=== PATIENT | female | born 1975 | race Caucasian/White ===

== ENCOUNTER 2016-11-07 21:00 | Emergency (ER) | payer BC, OTHER ==
[~2016-11-07] VITALS: Ht 160 cm; Wt 134.9 kg
[~2016-11-07 21:00] MED LIST: BACT800T5 PO; LEXA5TAB PO; LISI-587 PO; MONT10 PO; SYNT75TA PO
[2016-11-07 21:08] VITALS: BP 180/127; PULSE 76; RESP 18; TEMP 98.6; O2SAT 100
[2016-11-07] MEDS ORDERED: FLUO-1 PO (21:35)
[2016-11-07] MEDS ORDERED: METF500T PO (21:35)
[2016-11-07] MEDS ORDERED: KETOROLAC TROMETHAMINE 60 MG/2 ML (IM) VIAL IM ONE (21:45)
[2016-11-07] MEDS ORDERED: METOCLOPRAMIDE HCL 10 MG TAB PO ONE (21:45)
[2016-11-07] MEDS ORDERED: AMOXICILLIN/CLAVULANATE K 875 MG TAB PO ONE (21:45)
[2016-11-07] MEDS ORDERED: AUGM875T PO (21:46)
--- NOTE | 2016-11-07 21:46 | PD ---
HPI Chief Complaint: ENT Complaint Time Seen by Provider: 21:35 Travel History International Travel<30 days: No Contact w/Intl Traveler<30days: No Traveled to known affect area: No History of Present Illness HPI 41-year-old female here for evaluation of sinus pressure and headache. Symptoms have been going on for last 3 days. Patient reports feeling head pressure which has been intermittent for the last 3 days, moderate, associated with some photophobia and nausea. No vomiting. No fevers or chills. She reports history of migraines. This is not the worst headache of her life. Gradual onset. PFSH Past Medical History Asthma: Yes Blood Disorders: No Anxiety: Yes Depression: Yes Cancer: No Cardiovascular Problems: Yes (HTN) COPD: No Diabetes: No Diminished Hearing: No Endocrine: No Gastrointestinal Disorders: Yes Genitourinary: Yes (UTI) Headaches: Yes Immune Disorder: No Implanted Vascular Access Dvce: Yes Musculoskeletal: No Neurologic: Yes Psychiatric: Yes Reproductive: No Respiratory: Yes (Asthma ) Immunizations Current: Yes Migraines: Yes Sleep Apnea: No Thyroid Disease: Yes Ulcer: Yes Tetanus Vaccination: < 5 Years Influenza Vaccination: No ?: Unknown LMP: 02 27 17 : 3 Para: 3 Tubal Ligation: Yes (2007) Past Surgical History Abdominal Surgery: Yes (GALLBLADDER) AICD: No Arteriovenous Shunt: No Cardiac Surgery: No Section: Yes (2007) Cholecystectomy: Yes Ear Surgery: No Endocrine Surgery: No Genitourinary Surgery: No Gynecologic Surgery: Yes (C SECTION TUBAL LIGATION) Insulin Pump: No Joint Replacement: No Neurologic Surgery: No Oral Surgery: No Pacemaker: No Thoracic Surgery: No Other Surgery: Yes Social History Alcohol Use: No Tobacco Use: No Substance Use: No Allergies-Medications (Allergen,Severity, Reaction): Coded Allergies: No Known Allergies (Unverified , 05/28/16) Reported Meds & Prescriptions Reported Meds & Active Scripts Active Reported Metformin (Metformin HCl) 500 Mg Tab 500 Mg PO BIDPC With meals Prozac (Fluoxetine HCl) 10 Mg Cap 10 Mg PO DAILY Review of Systems Except as stated in HPI: all other systems reviewed are Neg Physical Exam Narrative GENERAL: Well-developed, well-nourished, comfortable, overall well-appearing, no acute distress. SKIN: Warm and dry. No rash. HEAD: Atraumatic. Normocephalic. Frontal sinus and maxillary sinus tenderness. EYES: Pupils equal and round. No scleral icterus. No injection or drainage. ENT: No nasal bleeding or discharge. Mucous membranes pink and moist. Bilateral tympanic membranes and external auditory canals are normal. NECK: Trachea midline. No JVD. No nuchal rigidity. CARDIOVASCULAR: Regular rate and rhythm. No murmur appreciated. RESPIRATORY: No accessory muscle use. Clear to auscultation. Breath sounds equal bilaterally. GASTROINTESTINAL: Abdomen soft, non-tender, nondistended. MUSCULOSKELETAL: No obvious deformities. No clubbing. No cyanosis. No edema. NEUROLOGICAL: Awake and alert. No obvious cranial nerve deficits. Motor grossly within normal limits. Normal speech. PSYCHIATRIC: Appropriate mood and affect; insight and judgment normal. Data Data Last Documented VS Vital Signs Date Time Temp Pulse Resp B/P Pulse Ox O2 Delivery O2 Flow Rate FiO2 11/07/16 21:08 98.6 76 18 180/127 100 Orders Ketorolac Inj (Toradol Inj) (11/07/16 21:45) Metoclopramide (Reglan) (11/07/16 21:45) Amoxicil-Clavulanate (Augmentin) (11/07/16 21:45) [facility] Medical Decision Making Medical Screen Exam Complete: Yes Emergency Medical Condition: Yes Differential Diagnosis Sinusitis, tension headache, migraine headache, cluster headache, SAH/meningitis /encephalitis unlikely Narrative Course This is a 41-year-old female with signs and symptoms that are classic for sinusitis. The patient reports history of sinusitis and reports that her symptoms were similar in the past. She is overall very well-appearing. No nuchal rigidity. Plan is to give her a dose of Toradol and Reglan here for her headache/sinus pressure and nausea as well as start her on Augmentin. PMD follow-up this week. She was informed on when to return to the emergency department. She verbalizes understanding and agreement with plan. Diagnosis Primary Impression: Sinusitis Qualified Code: J01.10 - Acute frontal sinusitis, recurrence not specified Referrals: Primary Care Physician 3 days Additional Instructions: Follow-up with your primary care physician this week. Take medications as prescribed. Return to the emergency department for worsening symptoms or any other concerns. Scripts Amoxicillin-Clavulanate (Augmentin)875-125 mg [id number] Mg PO BID 10 Days Ref 0 not for use in CrCl <30 ml/min. Prov:Preet Knapp MD 11/07/16 Disposition: 01 DISCHARGE HOME Condition: Stable Preet Knapp MD Nov 07, 2016 21:46
== END 2016-11-07 21:58 | disposition home or self-care (01) ==
LOC: PHED 21:00
DX: J32.9 Chronic sinusitis, unspecified (principal)
CPT/HCPCS: 96372; 99283; J1885

== ENCOUNTER 2016-11-12 20:23 | Emergency (ER) | payer OTHER ==
[~2016-11-12] VITALS: Ht 160 cm; Wt 135.5 kg
[~2016-11-12 20:23] MED LIST changes: +AUGM875T PO; -BACT800T5 PO; +FLUO-1 PO; -LEXA5TAB PO; -LISI-587 PO; +METF500T PO; -MONT10 PO; -SYNT75TA PO
[2016-11-12 20:46] VITALS: BP 202/139; PULSE 82; RESP 18; TEMP 98.2; O2SAT 99
== END 2016-11-13 04:38 | disposition left against medical advice (07) ==
LOC: PHED 20:23
DX: R51 Headache (principal)
CPT/HCPCS: 99281

== ENCOUNTER 2016-12-24 18:57 | Emergency (ER) | payer OTHER ==
[2016-12-24] VITALS (7 sets, daily range): BP systolic 168–210; BP diastolic 95–143; PULSE 68–105; RESP 16–20; TEMP 98.1; O2SAT 96–100
[2016-12-24] MEDS ORDERED: MONT10TA2 PO ×2 (19:13→20:47)
[2016-12-24] MEDS ORDERED: SODIUM CHLOR 0.9% 1000 ML INJ 1,000 ML IV ONE (19:46)
--- NOTE | 2016-12-24 19:55 | PD ---
HPI Chief Complaint: Headache Time Seen by Provider: 19:38 Travel History International Travel<30 days: No Contact w/Intl Traveler<30days: No Traveled to known affect area: No History of Present Illness HPI The patient is a 41-year-old female that states she has allergic type migraine headaches. She had her typical gradual onset migraine headache today but she did not have any Singulair to take which usually helps the headache. The headache is her usual headache that starts on the right occipital area and radiates. She does have nausea with vomiting and photophobia/phonophobia. Typical of her headaches she states her pressure goes up very high. She states her primary care physician took her off blood pressure medications because her blood pressure was very good. She denies any focal neurologic change. PFSH Past Medical History Asthma: Yes Blood Disorders: No Anxiety: Yes Depression: Yes Cancer: No Cardiovascular Problems: Yes (HTN) COPD: No Diabetes: No Diminished Hearing: No Endocrine: No Gastrointestinal Disorders: Yes Genitourinary: Yes (UTI) Headaches: Yes Hypertension: Yes Immune Disorder: No Implanted Vascular Access Dvce: Yes Musculoskeletal: No Neurologic: Yes Psychiatric: Yes Reproductive: No Respiratory: Yes (Asthma ) Immunizations Current: Yes Migraines: Yes Sleep Apnea: No Thyroid Disease: Yes Ulcer: Yes Influenza Vaccination: No ?: Not LMP: 12/11/16 : 3 Para: 3 Tubal Ligation: Yes (2007) Past Surgical History Abdominal Surgery: Yes (GALLBLADDER) AICD: No Arteriovenous Shunt: No Cardiac Surgery: No Section: Yes (2007) Cholecystectomy: Yes Ear Surgery: No Endocrine Surgery: No Genitourinary Surgery: No Gynecologic Surgery: Yes (C SECTION TUBAL LIGATION) Insulin Pump: No Joint Replacement: No Neurologic Surgery: No Oral Surgery: No Pacemaker: No Thoracic Surgery: No Other Surgery: Yes Social History Alcohol Use: No Tobacco Use: No Substance Use: No Allergies-Medications (Allergen,Severity, Reaction): Coded Allergies: No Known Allergies (Unverified , 12/24/16) Reported Meds & Prescriptions Reported Meds & Active Scripts Active Singulair (Montelukast Sodium) 10 Mg Tab 10 Mg PO HS Reported Singulair (Montelukast Sodium) 10 Mg Tab 10 Mg PO HS Metformin (Metformin HCl) 500 Mg Tab 500 Mg PO BIDPC With meals Prozac (Fluoxetine HCl) 10 Mg Cap 10 Mg PO DAILY Review of Systems Except as stated in HPI: all other systems reviewed are Neg Physical Exam Narrative GENERAL: The patient is alert, obese, oriented 3 in moderate apparent distress with her headache. Her blood pressure is 207/143 with a heart rate of 105 but the rest the vital signs are normal. SKIN: Focused skin assessment warm/dry. HEAD: Atraumatic. Normocephalic. EYES: Pupils equal and round. No scleral icterus. No injection or drainage. ENT: No nasal bleeding or discharge. Mucous membranes pink and moist. NECK: Trachea midline. No JVD. There is no meningismus and the patient can flex neck so that the chin touches her chest. CARDIOVASCULAR: Regular rate and rhythm. No murmur appreciated. RESPIRATORY: No accessory muscle use. Clear to auscultation. Breath sounds equal bilaterally. GASTROINTESTINAL: Abdomen soft, non-tender, nondistended. Hepatic and splenic margins not palpable. MUSCULOSKELETAL: No obvious deformities. No clubbing. No cyanosis. No edema. NEUROLOGICAL: Awake and alert. No obvious cranial nerve deficits. Motor grossly within normal limits. Normal speech. PSYCHIATRIC: Appropriate mood and affect; insight and judgment normal. Data Data Last Documented VS Vital Signs Date Time Temp Pulse Resp B/P Pulse Ox O2 Delivery O2 Flow Rate FiO2 12/24/16 22:12 80 16 168/109 99 Room Air 12/24/16 19:04 98.1 Orders Complete Blood Count With Diff (12/24/16 19:46) Basic Metabolic Panel (Bmp) (12/24/16 19:46) Ecg Monitoring (12/24/16 19:46) Iv Access Insert/Monitor (12/24/16 19:46) Oximetry (12/24/16 19:46) Sodium Chloride 0.9% Flush (Ns Flush) (12/24/16 20:00) Ketorolac Inj (Toradol Inj) (12/24/16 20:00) Prochlorperazine Inj (Compazine Inj) (12/24/16 20:00) Diphenhydramine Inj (Benadryl Inj) (12/24/16 20:00) Sodium Chlor 0.9% 1000 Ml Inj (Ns 1000 M (12/24/16 19:46) Hydralazine Inj (Apresoline Inj) (12/24/16 20:00) Hydromorphone Pf Inj (Dilaudid Pf Inj) (12/24/16 20:30) Clonidine (Catapres) (12/24/16 21:00) Hydralazine Inj (Apresoline Inj) (12/24/16 21:45) Labs Laboratory Tests Test 12/24/16 19:48 White Blood Count 11.4 TH/MM3 Red Blood Count 5.39 MIL/MM3 Hemoglobin 13.5 GM/DL Hematocrit 41.1 % Mean Corpuscular Volume 76.2 FL Mean Corpuscular Hemoglobin 25.0 PG Mean Corpuscular Hemoglobin 32.8 % Concent Red Cell Distribution Width 13.4 % Platelet Count 270 TH/MM3 Mean Platelet Volume 8.9 FL Neutrophils (%) (Auto) 68.6 % Lymphocytes (%) (Auto) 21.0 % Monocytes (%) (Auto) 5.9 % Eosinophils (%) (Auto) 2.0 % Basophils (%) (Auto) 2.5 % Neutrophils # (Auto) 7.8 TH/MM3 Lymphocytes # (Auto) 2.4 TH/MM3 Monocytes # (Auto) 0.7 TH/MM3 Eosinophils # (Auto) 0.2 TH/MM3 Basophils # (Auto) 0.3 TH/MM3 CBC Comment DIFF FINAL Differential Comment Sodium Level 139 MEQ/L Potassium Level 4.2 MEQ/L Chloride Level 106 MEQ/L Carbon Dioxide Level 27.1 MEQ/L Anion Gap 6 MEQ/L Blood Urea Nitrogen 11 MG/DL Creatinine 0.85 MG/DL Estimat Glomerular Filtration 74 ML/MIN Rate Random Glucose 104 MG/DL Calcium Level 8.4 MG/DL MDM Medical Decision Making Medical Screen Exam Complete: Yes Emergency Medical Condition: Yes Medical Record Reviewed: Yes Interpretation(s) The basic metabolic profile shows a GFR of 74 and calcium of 8.4 but is otherwise unremarkable. The CBC shows a white count of 11,400 but is otherwise unremarkable. Differential Diagnosis Migraine headache, tension headache, tension/migraine combination headache, normal pressure hydrocephalushighly unlikely, subarachnoid hemorrhagehighly unlikely, cluster headache, hypertensive headache Narrative Course It is now a 805 PM and the patient's pain has gone from a 10/10 to an 8/10. Her nausea has resolved. The blood pressure has gone down to 177/95. It is now 8:43 PM and the patient's pain is now a 4/10. She has no nausea. It is now 9:40 PM and the patient's headache has completely resolved. Her pressure is still elevated and we will give hydralazine 10 mg IV. The patient's headache is unlikely to be from the hypertension. The headache has completely resolved and yet her blood pressure still remains elevated. This appears to be a migraine headache. Plan: The patient will follow-up with her primary care physician, hopefully this week, for her blood pressure.@1013, blood pressure is 158/109. Diagnosis Primary Impression: Migraine headache Additional Impression: Hypertension, poor control Additional Instructions: Follow-up with her primary care physician this week if possible for your blood pressure. I refilled the Singulair to be taken 10 mg before bed. Med/Other Pt SpecificInfo: Prescription(s) given Scripts Montelukast (Singulair)10 Mg Tab10 Mg PO HS #30 TAB Ref 0 Prov:Arvind Helton MD 12/24/16 Disposition: 01 DISCHARGE HOME Condition: Stable Arvind Helton MD December 24, 2016 19:55
[2016-12-24] MEDS ORDERED: PROCHLORPERAZINE INJ 10 MG/2 ML VIAL IVP ONE (20:00)
[2016-12-24] MEDS ORDERED: KETOROLAC TROMETHAMINE 30 MG/ML (IVP) VIAL IVP ONE (20:00)
[2016-12-24] MEDS ORDERED: SODIUM CHLORIDE 0.9% FLUSH 10 ML FLUSH IVF PRN (20:00)
[2016-12-24] MEDS ORDERED: hydrALAZINE HCL 20 MG/ML VIAL IV PUSH ONE ×2 (20:00→21:45)
[2016-12-24] MEDS ORDERED: diphenhydrAMINE HCL 50 MG/ML VIAL IVP ONE (20:00)
[2016-12-24 20:02] LABS: AUTOMATED NEUTROPHIL # 7.8 TH/MM3 (1.8-7.7); BASOPHIL # 0.3 TH/MM3 (0-0.2); BASOPHIL % 2.5 % (0.0-2.0); EOSINOPHIL # 0.2 TH/MM3 (0-0.4); HEMATOCRIT 41.1 % (35.0-46.0); HEMO FLAGS DIFF FINAL; LYMPHOCYTE # 2.4 TH/MM3 (1.0-4.8); MEAN CELL VOLUME 76.2 FL (80.0-100.0); MEAN CORPUSCULAR HGB CONC 32.8 % (32.0-36.0); MONO % 5.9 % (0.0-8.0); NEUT % 68.6 % (16.0-70.0); PLATELET COUNT 270 TH/MM3 (150-450); RED BLOOD COUNT 5.39 MIL/MM3 (4.00-5.30); RED CELL DISTRIBUTION WIDTH 13.4 % (11.6-17.2); WHITE BLOOD COUNT 11.4 TH/MM3 (4.0-11.0)
[2016-12-24 20:11] LABS: BICARBONATE 27.1 MEQ/L (21.0-32.0); POTASSIUM 4.2 MEQ/L (3.5-5.1)
[2016-12-24] MEDS ORDERED: HYDROmorphone HCL PF 1 MG/ML VIAL IVP ONE (20:30)
[2016-12-24] MEDS ORDERED: cloNIDine HCL 0.2 MG TAB PO ONE (21:00)
== END 2016-12-24 22:29 | disposition home or self-care (01) ==
LOC: PHED 18:57
DX: G43.909 Migraine, unspecified, not intractable, without status migrainosus (principal); I10 Essential (primary) hypertension; J45.909 Unspecified asthma, uncomplicated
CPT/HCPCS: 80048; 85025; 96361; 96374; 96375; 96376; 99283; J0360; J0780; J1170; J1200; J1885; J7030

== ENCOUNTER 2017-02-11 11:03 | Emergency (ER) | payer OTHER ==
[~2017-02-11] VITALS: Ht 160 cm; Wt 136.0 kg
[~2017-02-11 11:03] MED LIST changes: -AUGM875T PO; +MONT10TA2 PO
[2017-02-11 11:13] VITALS: BP 201/133; PULSE 92; RESP 16; TEMP 98; O2SAT 98
[2017-02-11] MEDS ORDERED: SODIUM CHLOR 0.9% 1000 ML INJ 1,000 ML IV ONE (11:26)
[2017-02-11] MEDS ORDERED: FLUT1SPR5 EACH NARE (11:27)
[2017-02-11] MEDS ORDERED: SODIUM CHLORIDE 0.9% FLUSH 10 ML FLUSH IVF PRN (11:30)
[2017-02-11] MEDS ORDERED: LABETALOL HCL 100 MG/20 ML VIAL IV PUSH ONE (11:30)
[2017-02-11] MEDS ORDERED: MORPHINE SULFATE 4 MG/ML INJ IV PUSH ONE (11:30)
[2017-02-11] MEDS ORDERED: diphenhydrAMINE HCL 50 MG/ML VIAL IVP ONE (11:30)
[2017-02-11] MEDS ORDERED: KETOROLAC TROMETHAMINE 30 MG/ML (IVP) VIAL IVP ONE (11:30)
[2017-02-11] MEDS ORDERED: PROCHLORPERAZINE INJ 10 MG/2 ML VIAL IVP ONE (11:30)
--- NOTE | 2017-02-11 11:39 | PD ---
HPI Chief Complaint: Headache Time Seen by Provider: 11:17 Travel History International Travel<30 days: No Contact w/Intl Traveler<30days: No Traveled to known affect area: No History of Present Illness HPI The patient is a 41-year-old female who presents emergency department for headache. The patient states she developed a headache approximately 4:30 AM as located behind the right nasal area and radiates up into the head. The patient does complain of or a with flashing lights from both eyes as well as photophobia associated with her headache. She does complain of mild nausea but denies any vomiting. The patient has a history of migraines in the past with similar features, denies any acute onset of her headache or thunderclap quality. She denies any posterior neck pain or weakness of the upper or lower extremities. She denies any acute focal neurologic deficits. The patient states when she has a migraine her blood pressure is elevated, however, states the headache precedes the elevated blood pressure. The patient has been followed by her primary physician in the past for migraines, but is not currently on any suppressive medications. PFSH Past Medical History Asthma: Yes Blood Disorders: No Anxiety: Yes Depression: Yes Cancer: No Cardiovascular Problems: Yes (HTN) COPD: No Diabetes: No Diminished Hearing: No Endocrine: No Gastrointestinal Disorders: Yes Genitourinary: Yes (UTI) Headaches: Yes Hypertension: Yes Immune Disorder: No Implanted Vascular Access Dvce: Yes Musculoskeletal: No Neurologic: Yes Psychiatric: Yes Reproductive: No Respiratory: Yes (Asthma ) Immunizations Current: Yes Migraines: Yes Sleep Apnea: No Thyroid Disease: Yes Ulcer: Yes ?: Not LMP: 01/22/17 : 3 Para: 3 Tubal Ligation: Yes (2007) Past Surgical History Abdominal Surgery: Yes (GALLBLADDER) AICD: No Arteriovenous Shunt: No Cardiac Surgery: No Section: Yes (2007) Cholecystectomy: Yes Ear Surgery: No Endocrine Surgery: No Genitourinary Surgery: No Gynecologic Surgery: Yes (C SECTION TUBAL LIGATION) Insulin Pump: No Joint Replacement: No Neurologic Surgery: No Oral Surgery: No Pacemaker: No Thoracic Surgery: No Other Surgery: Yes Social History Alcohol Use: No Tobacco Use: No Substance Use: No Allergies-Medications (Allergen,Severity, Reaction): Coded Allergies: No Known Allergies (Unverified , 02/11/17) Reported Meds & Prescriptions Reported Meds & Active Scripts Active Reported Flonase Nasal Foll[place]bee (Fluticasone Nasal Foll[place]bee) 50 Mcg/Act [place]oll[place] 50 Mcg EACH NARE BID Singulair (Montelukast Sodium) 10 Mg Tab 10 Mg PO HS Review of Systems Except as stated in HPI: all other systems reviewed are Neg General / Constitutional: No: Fever Eyes: Positive: Photophobia HENT: Positive: Headaches, No: Neck Pain Cardiovascular: No: Chest Pain or Discomfort Respiratory: No: Shortness of Breath Gastrointestinal: Positive: Nausea, No: Vomiting Musculoskeletal: No: Weakness Neurologic: Positive: Headache, No: Dizziness, Paresthesia, Sensory Disturbance Physical Exam Narrative GENERAL: Awake, alert, pleasant 41-year-old female who appears her stated age and is in no acute respiratory distress. Patient is initially evaluated with her sunglasses on. SKIN: Focused skin assessment warm/dry. HEAD: Atraumatic. Normocephalic. EYES: Pupils equal and round. Pupils are 3 mm bilateral and reactive. EOMs are intact. ENT: No nasal bleeding or discharge. Mucous membranes pink and moist. NECK: Trachea midline. No JVD. No meningeal signs noted. CARDIOVASCULAR: Regular rate and rhythm. No murmur appreciated. RESPIRATORY: No accessory muscle use. Clear to auscultation. Breath sounds equal bilaterally. GASTROINTESTINAL: Abdomen soft, non-tender, nondistended. MUSCULOSKELETAL: No obvious deformities. No clubbing. No cyanosis. No edema. NEUROLOGICAL: Awake and alert. No obvious cranial nerve deficits. Motor grossly within normal limits. Normal speech. Nonfocal. Oriented 4. Follows commands without difficulty. PSYCHIATRIC: Appropriate mood and affect; insight and judgment normal. Data Data Last Documented VS Vital Signs Date Time Temp Pulse Resp B/P Pulse Ox O2 Delivery O2 Flow Rate FiO2 02/11/17 12:35 74 20 190/118 97 02/11/17 11:13 98.0 Orders Ecg Monitoring (02/11/17 11:26) Iv Access Insert/Monitor (02/11/17 11:26) Oximetry (02/11/17 11:26) Sodium Chloride 0.9% Flush (Ns Flush) (02/11/17 11:30) Ketorolac Inj (Toradol Inj) (02/11/17 11:30) Prochlorperazine Inj (Compazine Inj) (02/11/17 11:30) Diphenhydramine Inj (Benadryl Inj) (02/11/17 11:30) Sodium Chlor 0.9% 1000 Ml Inj (Ns 1000 M (02/11/17 11:26) Morphine Inj (Morphine Inj) (02/11/17 11:30) Labetalol Inj (Trandate Inj) (02/11/17 11:30) MDM Medical Decision Making Medical Screen Exam Complete: Yes Emergency Medical Condition: Yes Medical Record Reviewed: Yes Interpretation(s) Vital Signs Date Time Temp Pulse Resp B/P Pulse Ox O2 Delivery O2 Flow Rate FiO2 02/11/17 12:35 74 20 190/118 97 02/11/17 11:59 16 02/11/17 11:46 96 02/11/17 11:45 85 20 219/122 99 02/11/17 11:13 98.0 92 16 201/133 98 Differential Diagnosis Differential diagnosis includes migraine, tension headache, cluster headache, hypertensive urgency, hypertensive emergency, sinusitis, glaucoma, cavernous sinus thrombosis. Narrative Course IV was established, the patient was placed on cardiac telemetry monitoring and continuous pulse oximetry monitoring. The patient was administered Benadryl, Compazine, Toradol, morphine, and IV fluids. Patient was also administered labetalol 20 mg intravenously for significantly elevated blood pressure. The patient is nonfocal on exam, no indication for acute imaging. The patient was reevaluated at 12:35 PM, her headache had resolved. The patient's blood pressure did improve, systolic was still slightly high 190 and diastolic was still slightly over 100, however, they did improve. The patient states she has not taken her lisinopril or hydrochlorothiazide at some time, is not had recent blood work. Therefore, I will place the patient on Norvasc 10 mg a day, she is advised to follow-up with her primary physician for repeat blood pressure monitoring. Return if symptoms worsen or progress. Diagnosis Primary Impression: Migraine headache Qualified Code: G43.909 - Migraine without status migrainosus, not intractable , unspecified migraine type Additional Impression: Hypertension, poor control Patient Instructions: General Instructions, Narcotic given in the ED Additional Instructions: Follow-up with your primary physician. Blood pressure medications as directed. Return if symptoms worsen or progress. Med/Other Pt SpecificInfo: Prescription(s) given Scripts Amlodipine (Norvasc)10 Mg Tab10 Mg PO DAILY #30 TAB Ref 0 Prov:Jasper Falk MD 02/11/17 Disposition: 01 DISCHARGE HOME Condition: Stable Jasper Falk MD Feb 11, 2017 11:39
[2017-02-11 11:45] VITALS: BP 219/122; PULSE 85; RESP 20; O2SAT 99
[2017-02-11 11:46] VITALS: O2SAT 96
[2017-02-11 12:35] VITALS: BP 190/118; PULSE 74; RESP 20; O2SAT 97
[2017-02-11] MEDS ORDERED: AMLO10 PO (12:43)
== END 2017-02-11 12:56 | disposition home or self-care (01) ==
LOC: PHED 11:03
DX: G43.909 Migraine, unspecified, not intractable, without status migrainosus (principal); I10 Essential (primary) hypertension
CPT/HCPCS: 96361; 96374; 96375; 99284; J0780; J1200; J1885; J2270; J7030

== ENCOUNTER 2017-05-16 18:56 | Emergency (ER) | payer OTHER ==
[2017-05-16] VITALS (12 sets, daily range): BP systolic 132–229; BP diastolic 72–134; PULSE 66–96; RESP 18–20; TEMP 98–98.7; O2SAT 97–98
[~2017-05-16] VITALS: Ht 160 cm; Wt 135.9 kg
[~2017-05-16 18:56] MED LIST changes: +AMLO10 PO; -FLUO-1 PO; +FLUT1SPR5 EACH NARE; -METF500T PO
[2017-05-16] MEDS ORDERED: PROCHLORPERAZINE INJ 10 MG/2 ML VIAL IVP ONE (19:30)
[2017-05-16] MEDS ORDERED: LABETALOL HCL 100 MG/20 ML VIAL IV PUSH ONE (19:30)
[2017-05-16] MEDS ORDERED: KETOROLAC TROMETHAMINE 30 MG/ML (IVP) VIAL IVP ONE (19:30)
[2017-05-16] MEDS ORDERED: diphenhydrAMINE HCL 50 MG/ML VIAL IVP ONE (19:30)
[2017-05-16] MEDS ORDERED: SODIUM CHLOR 0.9% 1000 ML INJ 1,000 ML IV SCH (19:30)
--- NOTE | 2017-05-16 19:43 | PD ---
HPI Chief Complaint: Headache Time Seen by Provider: 19:30 Travel History International Travel<30 days: No Contact w/Intl Traveler<30days: No Traveled to known affect area: No History of Present Illness HPI 41-year-old female presents to the emergency department by private transportation for complaint of recurrent migraine headache. Patient states typical headache since yesterday with associated photophobia and nausea. Patient states also has history of high blood pressure that is currently not been treated 6 months. Patient reports that she was discontinued off lisinopril and HCTZ approximately 6 months ago by her primary care provider and was not placed on an alternative antihypertensive. Patient states she's been under a lot of stress and has had sinus irritation with history of allergic rhinosinusitis. No fever, no chills, no double vision, loss of vision, no sudden onset thunderclap or worst headache of her life, no neck pain or stiffness, no upper or lower extremity numbness, tingling, or weakness,no chest pain, no palpitations, no referred neck, jaw, back, shoulder, arm, or abdominal pain also no vomiting and no near-syncope or syncope. Patient rates headache pain as 8-9/10 in intensity. PFSH Past Medical History Narrative Medical Anxiety depression asthma hypertension migraine UTI cholecystectomy tubal ligation no tobacco use alcohol use: Nursing notes reviewed Asthma: Yes Blood Disorders: No Anxiety: Yes Depression: Yes Cancer: No Cardiovascular Problems: Yes (HTN) COPD: No Diabetes: No Diminished Hearing: No Endocrine: No Gastrointestinal Disorders: Yes Genitourinary: Yes (UTI) Headaches: Yes Hypertension: Yes Immune Disorder: No Implanted Vascular Access Dvce: Yes Musculoskeletal: No Neurologic: Yes Psychiatric: Yes Reproductive: No Respiratory: Yes (Asthma ) Immunizations Current: Yes Migraines: Yes Sleep Apnea: No Thyroid Disease: Yes Ulcer: Yes Tetanus Vaccination: Unknown Influenza Vaccination: No ?: Not LMP: 05/02/17 : 3 Para: 3 Tubal Ligation: Yes (2007) Past Surgical History Abdominal Surgery: Yes (GALLBLADDER) AICD: No Arteriovenous Shunt: No Cardiac Surgery: No Section: Yes (2007) Cholecystectomy: Yes Ear Surgery: No Endocrine Surgery: No Genitourinary Surgery: No Gynecologic Surgery: Yes (C SECTION TUBAL LIGATION) Insulin Pump: No Joint Replacement: No Neurologic Surgery: No Oral Surgery: No Pacemaker: No Thoracic Surgery: No Other Surgery: Yes Social History Alcohol Use: No Tobacco Use: No Substance Use: No Allergies-Medications (Allergen,Severity, Reaction): Coded Allergies: No Known Allergies (Unverified , 05/16/17) Reported Meds & Prescriptions Reported Meds & Active Scripts Active Zofran Odt (Ondansetron Odt) 4 Mg Tab 4 Mg SL Q6HR PRN Norvasc (Amlodipine Besylate) 10 Mg Tab 10 Mg PO DAILY Review of Systems Except as stated in HPI: all other systems reviewed are Neg General / Constitutional: No: Fever, Chills Eyes: Positive: Photophobia, No: Diploplia, Blurred Vision HENT: Positive: Headaches, No: Vertigo, Lightheadedness, Neck Stiffness, Neck Pain Cardiovascular: No: Chest Pain or Discomfort, Palpitations, Diaphoresis, Syncope Respiratory: No: Shortness of Breath Gastrointestinal: Positive: Nausea, No: Vomiting, Abdominal Pain Genitourinary: No: Dysuria, Flank Pain Musculoskeletal: No: Myalgias, Arthralgias Skin: No Rash Neurologic: Positive: Headache, No: Weakness, Dizziness, Syncope, Focal Abnormalities, Coordination Problem, Change in Mentation, Slurred Speech, Paresthesia Psychiatric: No: Anxiety Hematologic/Lymphatic: No: Easy Bruising Physical Exam Narrative GENERAL: Well-developed well-nourished clinically obese female in no acute distress no respiratory distress; hypertensive BP: 210/134, 201/127 SKIN: Warm and dry. HEAD: Atraumatic. Normocephalic. EYES: Pupils equal and round. No scleral icterus. No injection or drainage. Extraocular muscles intact. Funduscopic exam no papilledema noted ENT: No nasal bleeding or discharge. Mucous membranes pink and moist. NECK: Trachea midline. No JVD. Supple no meningismus no nuchal rigidity. CARDIOVASCULAR: Regular rate and rhythm. RESPIRATORY: No accessory muscle use. Clear to auscultation. Breath sounds equal bilaterally. GASTROINTESTINAL: Abdomen soft, non-tender, nondistended. Hepatic and splenic margins not palpable. MUSCULOSKELETAL: Extremities without clubbing, cyanosis, or edema. No obvious deformities. NEUROLOGICAL: Awake and alert. No obvious cranial nerve deficits. Motor grossly within normal limits. Five out of 5 muscle strength in the arms and legs. Sensory exam intact. DTR's symmetric. No pronator drift. No limb ataxia. Normal speech. PSYCHIATRIC: Appropriate mood and affect; insight and judgment normal. Data Data Last Documented VS Vital Signs Date Time Temp Pulse Resp B/P (MAP) Pulse Ox O2 Delivery O2 Flow Rate FiO2 05/16/17 23:11 84 20 188/89 (122) 99 05/16/17 20:19 Room Air 05/16/17 19:22 98.0 Orders Orders Ecg Monitoring (05/16/17 19:30) Iv Access Insert/Monitor (05/16/17 19:30) Oximetry (05/16/17 19:30) Sodium Chloride 0.9% Flush (Ns Flush) (05/16/17 19:30) Ketorolac Inj (Toradol Inj) (05/16/17 19:30) Prochlorperazine Inj (Compazine Inj) (05/16/17 19:30) Diphenhydramine Inj (Benadryl Inj) (05/16/17 19:30) Labetalol Inj (Trandate Inj) (05/16/17 19:30) Sodium Chlor 0.9% 1000 Ml Inj (Ns 1000 M (05/16/17 19:30) Hydralazine Inj (Apresoline Inj) (05/16/17 21:15) Hydromorphone Pf Inj (Dilaudid Pf Inj) (05/16/17 21:15) Enalaprilat Inj (Vasotec Inj) (05/16/17 22:45) MDM Medical Decision Making Medical Screen Exam Complete: Yes Emergency Medical Condition: Yes Medical Record Reviewed: Yes Interpretation(s) Vital Signs Date Time Temp Pulse Resp B/P (MAP) Pulse Ox O2 Delivery O2 Flow Rate FiO2 05/16/17 21:51 96 20 136/72 (93) 98 05/16/17 21:36 93 20 132/81 (98) 98 05/16/17 21:31 20 05/16/17 21:19 75 20 206/106 (139) 98 05/16/17 20:48 67 20 193/101 (131) 98 05/16/17 20:19 70 20 210/118 (148) 98 Room Air 05/16/17 20:00 66 20 229/123 (158) 98 05/16/17 19:41 86 18 196/121 (146) 97 Room Air 05/16/17 19:40 97 05/16/17 19:22 98.0 94 18 201/127 (151) 97 05/16/17 19:11 98.7 94 210/134 (159) 97 Room Air Differential Diagnosis Cephalgia, migraine, hypertension, hypertensive urgency, ICH Narrative Course 41-year-old female with hypertension and history of migraine currently on no antihypertensive medications presents with recurrent headache consistent with her migraine worrisome for uncontrolled blood pressure induced cephalgia as well at this time has no focality on exam; patient placed on teletypesetter monitor with pulse oximetry IV access obtained; patient administered labetalol 20 mg IV for blood pressure management and Toradol 30 mg IV Compazine 10 mg IV Benadryl 25 mg IV for blood pressure management as well as maintenance fluids normal saline at 125 cc per hour. Patient with improvement of headache and mild photophobia and nausea however ongoing hypertension additional antihypertensive administered Patient given hydralazine 10 mg IV times one dose and dilaudid 1 mg iv At 10:37 PM blood pressure is 155/92; patient reports that she feels well; patient denies any headache. Patient also denies any shortness of breath or chest pain palpitations nausea sweats referred neck jaw back shoulder arm pain. Patient was able to ambulate about the emergency department without recurrent headache nausea no shortness of breath and otherwise asymptomatic. Patient will be given prescription for new antihypertensive and encouraged to follow-up with primary care provider. Diagnosis Primary Impression: Migraine headache Additional Impression: Hypertension, poor control Referrals: [facility] call for appointment Primary Care Physician 2 days Patient Instructions: General Instructions, Narcotic given in the ED Additional Instructions: Take blood pressure medication as prescribed May use medications Zofran as prescribed as needed for nausea and vomiting Take acetaminophen/Tylenol and/or ibuprofen/Advil/Motrin per package instructions as needed for minor pain/headache Return to the emergency department for any concerns or change condition Follow-up with primary care provider through [facility] for ongoing blood pressure management Med/Other Pt SpecificInfo: Prescription(s) given Scripts Ondansetron Odt (Zofran Odt) 4 Mg Tab 4 MG SL Q6HR Y for Nausea/Vomiting, #7 TAB 0 Refills Prov: Myla Rocha MD 05/16/17 Amlodipine (Norvasc) 10 Mg Tab 10 MG PO DAILY for Blood Pressure Management, #30 TAB 0 Refills Prov: Myla Rocha MD 05/16/17 Disposition: 01 DISCHARGE HOME Condition: Stable Myla Rocha MD May 16, 2017 19:43
[2017-05-16] MEDS: SODIUM CHLORIDE 0.9% FLUSH 10 ML FLUSH IVF PRN ×2 (20:01→21:24)
[2017-05-16] MEDS ORDERED: hydrALAZINE HCL 20 MG/ML VIAL IV PUSH ONE (21:15)
[2017-05-16] MEDS ORDERED: HYDROmorphone HCL PF 1 MG/ML VIAL IV PUSH ONE (21:15)
[2017-05-16] MEDS ORDERED: ZOFR4TAB3 SL (22:38)
[2017-05-16] MEDS ORDERED: AMLO10 PO (22:38)
[2017-05-16] MEDS ORDERED: ENALAPRILAT 1.25 MG/ML VIAL IV PUSH ONE (22:45)
== END 2017-05-16 23:19 | disposition home or self-care (01) ==
LOC: PHED 18:56
DX: G43.909 Migraine, unspecified, not intractable, without status migrainosus (principal); I10 Essential (primary) hypertension
CPT/HCPCS: 96361; 96374; 96375; 99284; J0360; J0780; J1170; J1200; J1885; J7030

== ENCOUNTER 2017-11-05 09:32 | Emergency (ER) | payer OTHER ==
[~2017-11-05] VITALS: Ht 160 cm; Wt 138.8 kg
[~2017-11-05 09:32] MED LIST changes: -FLUT1SPR5 EACH NARE; -MONT10TA2 PO; +ZOFR4TAB3 SL
[2017-11-05 09:37] VITALS: BP 267/147; PULSE 96; RESP 16; TEMP 97.7; O2SAT 100
[2017-11-05 10:43] VITALS: BP 222/110; PULSE 98; RESP 20; O2SAT 98
--- NOTE | 2017-11-05 11:09 | PD ---
HPI Chief Complaint: Dizziness Time Seen by Provider: 11:00 Travel History International Travel<30 days: No Contact w/Intl Traveler<30days: No Traveled to known affect area: No History of Present Illness HPI The patient was seen and examined in the presence of the nurse. This patient complains of headache. She has moderately severe headache on the right side of her head. No thunderclap onset. She does have history of migraines and this has is similar feel to it. She arrives hypertensive with a blood pressure 222 systolic at this time. No head injury or blood thinners. No alleviating factors. Denies other neurologic complaint. No exacerbating factor. Duration one day PFSH Past Medical History Asthma: Yes Blood Disorders: No Anxiety: Yes Depression: Yes Cancer: No Cardiovascular Problems: Yes (htn not taking meds) COPD: No Diabetes: No Diminished Hearing: No Endocrine: No Gastrointestinal Disorders: Yes Genitourinary: Yes (UTI) Headaches: Yes Hypertension: Yes Immune Disorder: No Implanted Vascular Access Dvce: Yes Musculoskeletal: No Neurologic: Yes Psychiatric: Yes Reproductive: No Respiratory: Yes (asthma) Immunizations Current: Yes Migraines: Yes Sleep Apnea: No Thyroid Disease: Yes Ulcer: Yes ?: Not LMP: 10/21/17 : 3 Para: 3 Tubal Ligation: Yes (2007) Past Surgical History Abdominal Surgery: Yes (GALLBLADDER) AICD: No Arteriovenous Shunt: No Cardiac Surgery: No Section: Yes (2007) Cholecystectomy: Yes Ear Surgery: No Endocrine Surgery: No Genitourinary Surgery: No Gynecologic Surgery: Yes (C SECTION TUBAL LIGATION) Insulin Pump: No Joint Replacement: No Neurologic Surgery: No Oral Surgery: No Pacemaker: No Thoracic Surgery: No Other Surgery: Yes Social History Alcohol Use: No Tobacco Use: No Substance Use: No Allergies-Medications (Allergen,Severity, Reaction): Coded Allergies: No Known Allergies (Unverified Adverse Reaction, Unknown, 11/05/17) Reported Meds & Prescriptions Reported Meds & Active Scripts Active No Active Prescriptions or Reported Medications Review of Systems General / Constitutional: No: Fever Eyes: No: Visual changes HENT: Positive: Headaches Cardiovascular: No: Chest Pain or Discomfort Respiratory: No: Shortness of Breath Gastrointestinal: Positive: Nausea, No: Abdominal Pain Genitourinary: No: Dysuria Musculoskeletal: No: Pain Skin: No Rash Neurologic: Positive: Headache, No: Weakness Psychiatric: No: Depression Endocrine: No: Polydipsia Hematologic/Lymphatic: No: Easy Bruising Physical Exam Narrative GENERAL: Well-nourished, well-developed patient with headache . SKIN: Focused skin assessment reveals no rash and nodules. Skin is Warm and dry. HEAD: Atraumatic. Normocephalic. EYES: Pupils equal and round. No scleral icterus. No injection or drainage. ENT: No nasal bleeding or discharge. Mucous membranes pink and moist. NECK: Trachea midline. No JVD. No meningeal signs CARDIOVASCULAR: Regular rate and rhythm. No murmur appreciated. RESPIRATORY: No accessory muscle use. Clear to auscultation. Breath sounds equal bilaterally. GASTROINTESTINAL: Abdomen soft, non-tender, nondistended. Hepatic and splenic margins not palpable. MUSCULOSKELETAL: No obvious deformities. No clubbing. No cyanosis. No edema. NEUROLOGICAL: Awake and alert. No obvious cranial nerve deficits. Motor grossly within normal limits. Normal speech. PSYCHIATRIC: Appropriate mood and affect; insight and judgment normal. Data Data Last Documented VS Vital Signs Date Time Temp Pulse Resp B/P (MAP) Pulse Ox O2 Delivery O2 Flow Rate FiO2 11/05/17 13:45 97 20 173/95 (121) 95 11/05/17 09:37 97.7 Orders Orders Ondansetron Inj (Zofran Inj) (11/05/17 11:15) Morphine Inj (Morphine Inj) (11/05/17 11:15) Ct Brain W/O Iv Contrast(Rout) (11/05/17 ) Clonidine (Catapres) (11/05/17 11:15) Nifedipine (Procardia) (11/05/17 13:00) MDM Medical Decision Making Medical Screen Exam Complete: Yes Emergency Medical Condition: Yes Medical Record Reviewed: Yes Differential Diagnosis Differential diagnosis includes migraine, tension headache, cluster headache, meningitis. Narrative Course I have reviewed the patient's electronic medical record. Patient's been here multiple times for migraines. However she never been this hypertensive I gave her dose of clonidine and will reassess blood pressure Gave her injection of morphine and Zofran for symptom relief Brain CT is normal She is neurologically intact I gave a dose of Procardia is the blood pressure did not really budge much On recheck it's now 175/95 Advised to check and recorded daily and follow up with primary care Diagnosis Primary Impression: Migraine headache Qualified Codes: G43.109 - Migraine with aura, not intractable, without status migrainosus Additional Impression: Hypertension, poor control Additional Instructions: The patient was advised to follow up with their physician and return if they worsen. Check and record blood pressure daily Med/Other Pt SpecificInfo: Other Scripts No Active Prescriptions or Reported Meds Disposition: 01 DISCHARGE HOME Condition: Stable Anil Marrero MD Nov 05, 2017 11:09
[2017-11-05] MEDS ORDERED: MORPHINE SULFATE 4 MG/ML INJ IM ONE (11:15)
[2017-11-05] MEDS ORDERED: ONDANSETRON HCL 4 MG/2 ML VIAL IM ONE (11:15)
[2017-11-05] MEDS ORDERED: cloNIDine HCL 0.2 MG TAB PO ONE (11:15)
--- NOTE | 2017-11-05 11:52 | RADRPT ---
EXAM DATE/TIME: 11/05/2017 11:38 [facility] COMPARISON: CT BRAIN W/O CONTRAST, June 17, 2014, 17:25. INDICATIONS : Cephalgia. RADIATION DOSE: 66.46 CTDIvol (mGy) MEDICAL HISTORY : Hypertension. Migraines. SURGICAL HISTORY : Cholecystectomy. section.Tubal ligation. ENCOUNTER: Initial ACUITY: 3 days PAIN SCALE: 7/10 LOCATION: Right cranial TECHNIQUE: Multiple contiguous axial images were obtained of the head. Using automated exposure control and adj ustment of the mA and/or kV according to patient size, radiation dose was kept as low as reasonably a chievable to obtain optimal diagnostic quality images. DICOM format image data is available electro nically for review and comparison. FINDINGS: CEREBRUM: The ventricles are normal for age. No evidence of midline shift, mass lesion, hemorrhage or acute in farction. No extra-axial fluid collections are seen. POSTERIOR FOSSA: The cerebellum and brainstem are intact. The 4th ventricle is midline. The cerebellopontine angle i s unremarkable. EXTRACRANIAL: The visualized portion of the orbits is intact. SKULL: The calvaria is intact. No evidence of skull fracture. CONCLUSION: 1. No acute intracranial abnormalities. Jacek Gordon MD on November 05, 2017 at 11:47 Board Certified Radiologist. This report was verified electronically.
[2017-11-05 12:16] VITALS: BP 198/136; PULSE 93; RESP 20; O2SAT 99
[2017-11-05] MEDS ORDERED: NIFEdipine 20 MG CAP PO ONE (13:00)
[2017-11-05 13:12] VITALS: BP 203/104; PULSE 99; RESP 18; O2SAT 99
[2017-11-05 13:27] VITALS: BP 177/101; PULSE 85; RESP 20; O2SAT 97
[2017-11-05 13:45] VITALS: BP 173/95; PULSE 97; RESP 20; O2SAT 95
[2017-11-05] MEDS ORDERED: ONDANSETRON ODT 4 MG TAB PO ONE (14:15)
== END 2017-11-05 14:18 | disposition home or self-care (01) ==
LOC: PHED 09:32
DX: G43.109 Migraine with aura, not intractable, without status migrainosus (principal); I10 Essential (primary) hypertension; J45.909 Unspecified asthma, uncomplicated
CPT/HCPCS: 70450; 96372; 99285; J2270; J2405

== ENCOUNTER 2017-12-24 08:44 | Emergency (ER) | payer OTHER ==
[~2017-12-24] VITALS: Ht 157.5 cm; Wt 136.2 kg
[2017-12-24 08:55] VITALS: BP 223/150; PULSE 108; RESP 16; TEMP 97.8; O2SAT 96
--- NOTE | 2017-12-24 08:57 | PD ---
HPI Chief Complaint: Multiple Time Seen by Provider: 08:55 Travel History International Travel<30 days: No Contact w/Intl Traveler<30days: No Traveled to known affect area: No History of Present Illness HPI Patient comes in complaining of headache, that is very consistent with her migraines. Over the last 2 days this headache has been described as achy, 6 out of 10, nonradiating, alleviated somewhat and transiently by Motrin and Advil. However after 2 days of taking Motrin and Advil then the patient started to develop epigastric area discomfort bloating burning sensation, 3 out of 10, nonradiating. Patient denies any alleviating or aggravating factors. Patient also denies any associated factors such as fever, rash, sore throat, diarrhea, abdominal cramping pain, flank pain or back pain. No known drug allergy Past medical history significant for migraine, hypertension, asthma, ulcer, gallbladder disease status post cholecystectomy, , tubal ligation, UTI, depression, anxiety, PFSH Past Medical History Asthma: Yes Blood Disorders: No Anxiety: Yes Depression: Yes Cancer: No Cardiovascular Problems: Yes (htn not taking meds) COPD: No Diabetes: No Diminished Hearing: No Endocrine: No Gastrointestinal Disorders: Yes Genitourinary: Yes (UTI) Headaches: Yes Hypertension: Yes Immune Disorder: No Implanted Vascular Access Dvce: Yes Musculoskeletal: No Neurologic: Yes Psychiatric: Yes Reproductive: No Respiratory: Yes (asthma) Immunizations Current: Yes Migraines: Yes Sleep Apnea: No Thyroid Disease: Yes Ulcer: Yes : 3 Para: 3 Tubal Ligation: Yes (2007) Past Surgical History Abdominal Surgery: Yes (GALLBLADDER) AICD: No Arteriovenous Shunt: No Cardiac Surgery: No Section: Yes (2007) Cholecystectomy: Yes Ear Surgery: No Endocrine Surgery: No Genitourinary Surgery: No Gynecologic Surgery: Yes (C SECTION TUBAL LIGATION) Insulin Pump: No Joint Replacement: No Neurologic Surgery: No Oral Surgery: No Pacemaker: No Thoracic Surgery: No Other Surgery: Yes Social History Alcohol Use: No Tobacco Use: No Substance Use: No Allergies-Medications (Allergen,Severity, Reaction): Coded Allergies: No Known Allergies (Unverified Adverse Reaction, Unknown, 11/05/17) Reported Meds & Prescriptions Reported Meds & Active Scripts Active Zofran Odt (Ondansetron Odt) 4 Mg Tab 4 Mg SL Q6HR PRN Ultram (Tramadol HCl) 50 Mg Tab 50 Mg PO Q6H PRN Review of Systems General / Constitutional: No: Fever Eyes: No: Visual changes HENT: Positive: Headaches Cardiovascular: No: Chest Pain or Discomfort Respiratory: No: Shortness of Breath Gastrointestinal: Positive: Nausea Genitourinary: No: Dysuria Musculoskeletal: No: Pain Skin: No Rash Neurologic: No: Weakness Psychiatric: No: Depression Endocrine: No: Polydipsia Hematologic/Lymphatic: No: Easy Bruising Physical Exam Narrative GENERAL: SKIN: Warm and dry. HEAD: Atraumatic. Normocephalic. EYES: Pupils equal and round. No scleral icterus. No injection or drainage. ENT: No nasal bleeding or discharge. Mucous membranes pink and moist. NECK: Trachea midline. No JVD. CARDIOVASCULAR: Regular rate and rhythm. RESPIRATORY: No accessory muscle use. Clear to auscultation. Breath sounds equal bilaterally. GASTROINTESTINAL: Abdomen soft, non-tender, nondistended. MUSCULOSKELETAL: Extremities without clubbing, cyanosis, or edema. No obvious deformities. NEUROLOGICAL: Awake and alert. No obvious cranial nerve deficits. Motor grossly within normal limits. Five out of 5 muscle strength in the arms and legs. Normal speech. PSYCHIATRIC: Appropriate mood and affect; insight and judgment normal. Data Data Last Documented VS Vital Signs Date Time Temp Pulse Resp B/P (MAP) Pulse Ox O2 Delivery O2 Flow Rate FiO2 12/24/17 10:56 98 18 187/108 (134) 100 Room Air 12/24/17 08:55 97.8 Orders Orders Complete Blood Count With Diff (12/24/17 09:03) Comprehensive Metabolic Panel (12/24/17 09:03) Lipase (12/24/17 09:03) Urinalysis - C+S If Indicated (12/24/17 09:03) Iv Access Insert/Monitor (12/24/17 09:03) Ecg Monitoring (12/24/17 09:03) Oximetry (12/24/17 09:03) NPO (12/24/17 09:03) Morphine Inj (Morphine Inj) (12/24/17 09:15) Ondansetron Inj (Zofran Inj) (12/24/17 09:15) Sodium Chloride 0.9% Flush (Ns Flush) (12/24/17 09:15) Al-Mag Hy-Si 40-40-4 Mg/Ml Liq (Mag-Al P (12/24/17 09:15) Lidocaine 2% Viscous (Xylocaine 2% Visco (12/24/17 09:15) Ed Urine Pregnancytest Poc (12/24/17 09:03) Hydralazine Inj (Apresoline Inj) (12/24/17 09:15) Ed Discharge Order (12/24/17 11:43) Labs Laboratory Tests Test 12/24/17 09:32 12/24/17 09:35 White Blood Count 9.1 TH/MM3 Red Blood Count 5.27 MIL/MM3 Hemoglobin 13.6 GM/DL Hematocrit 40.3 % Mean Corpuscular Volume 76.6 FL Mean Corpuscular Hemoglobin 25.7 PG Mean Corpuscular Hemoglobin Concent 33.6 % Red Cell Distribution Width 14.1 % Platelet Count 267 TH/MM3 Mean Platelet Volume 9.2 FL Neutrophils (%) (Auto) 70.7 % Lymphocytes (%) (Auto) 20.6 % Monocytes (%) (Auto) 6.0 % Eosinophils (%) (Auto) 2.1 % Basophils (%) (Auto) 0.6 % Neutrophils # (Auto) 6.4 TH/MM3 Lymphocytes # (Auto) 1.9 TH/MM3 Monocytes # (Auto) 0.5 TH/MM3 Eosinophils # (Auto) 0.2 TH/MM3 Basophils # (Auto) 0.1 TH/MM3 CBC Comment DIFF FINAL Differential Comment Blood Urea Nitrogen 12 MG/DL Creatinine 0.82 MG/DL Random Glucose 102 MG/DL Total Protein 8.0 GM/DL Albumin 3.2 GM/DL Calcium Level 8.7 MG/DL Alkaline Phosphatase 96 U/L Aspartate Amino Transf (AST/SGOT) 14 U/L Alanine Aminotransferase (ALT/SGPT) 22 U/L Total Bilirubin 0.7 MG/DL Sodium Level 139 MEQ/L Potassium Level 3.7 MEQ/L Chloride Level 107 MEQ/L Carbon Dioxide Level 26.6 MEQ/L Anion Gap 5 MEQ/L Estimat Glomerular Filtration Rate 76 ML/MIN Lipase 108 U/L Urine Collection Type CLEAN CATCH Urine Color YELLOW Urine Turbidity CLEAR Urine pH 6.5 Urine Specific [place] 1.025 Urine Protein 30 mg/dL Urine Glucose (UA) NEG mg/dL Urine Ketones TRACE mg/dL Urine Occult Blood NEG Urine Nitrite NEG Urine Bilirubin NEG Urine Urobilinogen 0.2 MG/DL Urine Leukocyte Esterase NEG Urine WBC 3-5 /hpf Urine Squamous Epithelial Cells > 8 /hpf Urine Bacteria OCC /hpf Microscopic Urinalysis Comment CULT NOT INDICATED Urine Collection Time 09:35 [facility] Medical Decision Making Medical Screen Exam Complete: Yes Emergency Medical Condition: Yes Medical Record Reviewed: Yes Differential Diagnosis Migraine versus dyspeptic syndrome versus pancreatitis versus hepatitis versus I abnormalities versus anemia versus dehydration Narrative Course CBC shows no leukocytosis, no anemia, no left shift, normal platelet count Urinalysis is negative for any UTI UA is within normal limits, normal kidney liver and pancreatic functions. Upon reevaluation the patient's headache is now resolved, as well as her nausea. Patient feels much better and would like to be discharged. Patient was able to ambulate on her own power Diagnosis Primary Impression: Migraine headache Qualified Codes: G43.909 - Migraine, unspecified, not intractable, without status migrainosus Additional Impressions: Dyspepsia Hypertension, poor control Patient Instructions: Acute Headache (ED), General Instructions Additional Instructions: Your highly advised to follow-up with the primary care to establish further care and control of your blood pressure. Today you were started on the medication at school amlodipine 5 mg daily. There is enough of this medication for 1 month, please do not wait the entire month before getting a follow-up appointment with primary care. This particular medication is free at [facility]. Scripts Amlodipine (Amlodipine) 5 Mg Tab 5 MG PO DAILY for Blood Pressure Management, #30 TAB 0 Refills Prov: Balbir Ruffin MD 12/24/17 Ondansetron Odt (Zofran Odt) 4 Mg Tab 4 MG SL Q6HR Y for Nausea/Vomiting, #20 TAB 0 Refills Prov: Balbir Ruffin MD 12/24/17 Tramadol (Ultram) 50 Mg Tab 50 MG PO Q6H Y for PAIN, #14 TAB 0 Refills Prov: Balbir Ruffin MD 12/24/17 Disposition: 01 DISCHARGE HOME Condition: Stable Balbir Ruffin MD December 24, 2017 08:57
[2017-12-24] MEDS ORDERED: ONDANSETRON HCL 4 MG/2 ML VIAL IVP ONE (09:15)
[2017-12-24] MEDS ORDERED: LIDOCAINE VISCOUS 2% SOLN 15 ML UDC PO ONE (09:15)
[2017-12-24] MEDS ORDERED: ALUMINUM/MAGNESIUM/SIMETH 30 ML CUP PO ONE (09:15)
[2017-12-24] MEDS ORDERED: MORPHINE SULFATE 4 MG/ML INJ IV PUSH ONE (09:15)
[2017-12-24] MEDS ORDERED: hydrALAZINE HCL 20 MG/ML VIAL IV PUSH ONE (09:15)
[2017-12-24] MEDS ORDERED: SODIUM CHLORIDE 0.9% FLUSH 10 ML FLUSH IV FLUSH PRN (09:15)
[2017-12-24 09:28] VITALS: BP 224/120; PULSE 96; RESP 16; O2SAT 96; O2SAT 97
[2017-12-24 09:40] LABS: BILIRUBIN, URINE NEG (NEG); BLOOD, URINE NEG (NEG); GLUCOSE,URINE NEG (NEG); KETONE, URINE TRACE mg/dL (NEG); NITRITE,URINE NEG (NEG); PH, URINE 6.5 (5.0-8.5); URINE COLOR YELLOW (YELLW/STRAW); URINE LEUKOCYTE ESTERASE NEG (NEG)
[2017-12-24 09:41] LABS: AUTOMATED NEUTROPHIL # 6.4 TH/MM3 (1.8-7.7); BASOPHIL # 0.1 TH/MM3 (0-0.2); BASOPHIL % 0.6 % (0.0-2.0); EOSINOPHIL # 0.2 TH/MM3 (0-0.4); EOSINOPHIL % 2.1 % (0.0-4.0); HEMATOCRIT 40.3 % (35.0-46.0); HEMOGLOBIN 13.6 GM/DL (11.6-15.3); LYMPH % 20.6 % (9.0-44.0); LYMPHOCYTE # 1.9 TH/MM3 (1.0-4.8); MEAN CELL VOLUME 76.6 FL (80.0-100.0); MEAN CORPUSCULAR HEMOGLOBIN 25.7 PG (27.0-34.0); MEAN CORPUSCULAR HGB CONC 33.6 % (32.0-36.0); MEAN PLATELET VOLUME 9.2 FL (7.0-11.0); MONOCYTE # 0.5 TH/MM3 (0-0.9); NEUT % 70.7 % (16.0-70.0); PLATELET COUNT 267 TH/MM3 (150-450); RED BLOOD COUNT 5.27 MIL/MM3 (4.00-5.30); RED CELL DISTRIBUTION WIDTH 14.1 % (11.6-17.2); WHITE BLOOD COUNT 9.1 TH/MM3 (4.0-11.0)
[2017-12-24 09:50] LABS: BACTERIA, URINE OCC /hpf; SQUAMOUS EPITHELIAL CELL URINE > 8 /hpf (0-5)
[2017-12-24 10:12] LABS: GLUCOSE,RANDOM 102 MG/DL (74-106)
[2017-12-24 10:13] LABS: CALCIUM 8.7 MG/DL (8.5-10.1)
[2017-12-24 10:15] LABS: ALT (GPT) 22 U/L (10-53); AST (GOT) 14 U/L (15-37); BICARBONATE 26.6 MEQ/L (21.0-32.0); BLOOD UREA NITROGEN 12 MG/DL (7-18); CREATININE 0.82 MG/DL (0.50-1.00); GLOMERULAR FILTRATION RATE 76 ML/MIN (>89)
[2017-12-24 10:16] LABS: ALBUMIN 3.2 GM/DL (3.4-5.0)
[2017-12-24 10:17] LABS: TOTAL BILIRUBIN ADULT 0.7 MG/DL (0.2-1.0)
[2017-12-24 10:18] LABS: ALKALINE PHOSPHATASE 96 U/L (45-117)
[2017-12-24 10:19] LABS: CHLORIDE 107 MEQ/L (98-107); SODIUM (NA) 139 MEQ/L (136-145)
[2017-12-24 10:25] VITALS: BP 159/109; PULSE 101; RESP 16; O2SAT 98
[2017-12-24 10:56] VITALS: BP 187/108; PULSE 98; RESP 18; O2SAT 100
[2017-12-24] MEDS ORDERED: TRAM50 PO (11:41)
[2017-12-24] MEDS ORDERED: ZOFR4TAB3 SL (11:41)
[2017-12-24] MEDS ORDERED: AMLO5TAB2 PO (11:49)
[2017-12-24 11:52] VITALS: BP 167/105
== END 2017-12-24 12:11 | disposition home or self-care (01) ==
LOC: PHED 08:44
DX: G43.909 Migraine, unspecified, not intractable, without status migrainosus (principal); R10.13 Epigastric pain; I10 Essential (primary) hypertension; J45.909 Unspecified asthma, uncomplicated; F41.9 Anxiety disorder, unspecified; F32.9 Major depressive disorder, single episode, unspecified; E07.9 Disorder of thyroid, unspecified
CPT/HCPCS: 80053; 81001; 83690; 84703; 85025; 96374; 96375; 99284; J0360; J2270; J2405